=== PATIENT | female | born 1950 | race Caucasian/White ===

== ENCOUNTER 2020-02-18 15:14 | Emergency (ER) | payer MEDICARE, OTHER ==
[2020-02-18] MEDS ORDERED: Acetaminophen 500 MG Tab PO ONE (15:35)
--- NOTE | 2020-02-18 17:09 | EDM.PDOC ---
ED HPI GENERAL MEDICAL PROBLEM - General Stated Complaint: HEAD INJURY Time Seen by Provider: 02/18/20 15:20 Source of Information: Reports: Patient History Limitations: Reports: No Limitations - History of Present Illness INITIAL COMMENTS - FREE TEXT/NARRATIVE: pt was sent in from clinic had tripped and fell , tripped on pothole as she was walking yesterday landed on her face , was able to get up, not sure whether she lost consciousness since this am woke up with frontal headache pain on the left side of now and right knee. had nausea with no vomiting Duration: Day(s): (2) Severity: Moderate Improves with: Reports: None Worsens with: Reports: Movement Associated Symptoms: Reports: Headaches, Nausea/Vomiting, Weakness Treatments JOB COACHING: Reports: Aspirin - Related Data Allergies Allergy/AdvReac Type Severity Reaction Status Date / Time No Known Allergies Allergy Verified 02/18/20 16:21 Home Meds: Home Meds Losartan/Hydrochlorothiazide [Hyzaar 50-12.5 Tablet] 1 tab PO DAILY 02/18/20 [History] ED ROS GENERAL - Review of Systems Review Of Systems: See Below Constitutional: Reports: No Symptoms. Denies: Fever, Malaise, Weakness, Fatigue, Decreased Appetite HEENT: Reports: No Symptoms Respiratory: Reports: No Symptoms Cardiovascular: Reports: No Symptoms Endocrine: Reports: No Symptoms GI/Abdominal: Reports: No Symptoms : Reports: No Symptoms Musculoskeletal: Reports: No Symptoms Skin: Reports: No Symptoms Neurological: Reports: Headache Psychiatric: Reports: No Symptoms Hematologic/Lymphatic: Reports: No Symptoms Immunologic: Reports: No Symptoms ED EXAM, HEAD INJURY - Physical Exam Exam: See Below Exam Limited By: No Limitations General Appearance: Alert, WD/WN, No Apparent Distress Head: Atraumatic, Normocephalic, Facial Ecchymosis, Facial Swelling, Other (abrasion on the nose) Nexus Criteria: No: Posterior, Midline Cervical Tenderness Ears: Normal External Exam Nose: No: Nasal Deformity, Nasal Ecchymosis Throat/Mouth: Normal Inspection, Normal Oropharynx Neck: Non-Tender, Full Range of Motion Respiratory: No Respiratory Distress Cardiovascular: Normal Peripheral Pulses, Regular Rate, Rhythm Extremities: Normal Inspection, Normal Range of Motion Neurologic: No Motor/Sensory Deficits, Normal Mood/Affect, Oriented x 3. No: Abnormal Gait Skin: Normal Color - Jae Coma Score Best Eye Response (Taylor): (4) Open Spontaneously Best Verbal Response (Jae): (5) Oriented Best Motor Response (Jae): (6) Obeys Commands Course - Orders/Labs/Meds Orders: Active Orders 24 hr Category Date Time Status Head wo Cont [CT] Stat Exams 02/18/20 15:25 Taken Meds: Medications Discontinued Medications Generic Name Dose Route Start Last Admin Trade Name Simeon PRN Reason Stop Dose Admin Acetaminophen 1,000 mg 02/18/20 15:35 02/18/20 15:47 Tylenol Extra Strength PO 02/18/20 15:36 1,000 mg ONETIME ONE Administration - Re-Assessments/Exams Free Text/Narrative Re-Assessment/Exam: 02/18/20 18:15 pt was seen and evaluated CT head ordered pt given tylenol for headache States KINGSLEY resolved and she felt much better Departure - Departure Time of Disposition: 16:50 Disposition: Home, Self-Care 01 Condition: Good Clinical Impression: Fall (on)(from) sidewalk curb, initial encounter, Head injury without concussion or intracranial hemorrhage, Head injury - Discharge Information *PRESCRIPTION DRUG MONITORING PROGRAM REVIEWED*: Not Applicable *COPY OF PRESCRIPTION DRUG MONITORING REPORT IN PATIENT MALCOM: Not Applicable Instructions: Fall Prevention in the Home, Adult, [id number], Head Injury, Adult, How to Use Cold Therapy, [id number] Referrals: Natacha Chandler PA-C [Primary Care Provider] - Additional Instructions: 1) Tylenol extra strength 500mg , 2 tabs ( 1000 mg) every 8hr as needed 2) Cold compress to affected areas of face and head tid 3) Follow up with your doctor in 3-5 days - My Orders Last 24 Hours: My Active Orders 02/18/20 15:25 Head wo Cont [CT] Stat - Assessment/Plan Last 24 Hours: My Active Orders 02/18/20 15:25 Head wo Cont [CT] Stat
--- NOTE | 2020-02-19 12:14 | PCM.SN.2 ---
- Free Text/Narrative Note: CT reviewed with Dr Jackson who checked coronal reconstructions and agrees that there is no radiologic evidence of fx, as reported by [facility] radioogy Dr Peck at 4:15p yesterday when pt was seen in the ED by Dr Torres pt called, she reports no d/c from either nares, denies h/o of hayfever or sinus problems, did agree to take an antbx and nasal spray for her sinusitis pt has apt this PM with dentist as she broke off a tooth when she fell Rx x 2 called to pharmacist at [facility] for Augmentin 875/125 bid x 7d and fluticasone 2 sprays to L nares BID x 2w, pharmacist said she would reinforce need to take the meds ASSESS left maxillary sinusitis fractured tooth PLAN dental apt this PM Augmentin x 1w, fluticasone nasal spray x 2w
== END 2020-02-18 17:20 | disposition home or self-care (01) ==
LOC: FB.ED 15:14
DX: S09.90XA Unspecified injury of head, initial encounter (principal); W01.0XXA Fall on same level from slipping, tripping and stumbling without subsequent striking against object, initial encounter
CPT/HCPCS: 70450; 99284-25; A9270-GY